=== PATIENT | male | born 1980 | race Caucasian/White ===

== ENCOUNTER 2023-04-01 13:38 | Emergency (ER) | payer BC ==
[2023-04-01 13:57] VITALS: TEMP 98.2
--- NOTE | 2023-04-01 13:58 | ED ---
General Adult HPI - General Chief complaint: Syncope Stated complaint: Syncope Time Seen by Provider: 04/01/23 13:41 Source: patient, RN notes reviewed Mode of arrival: ambulatory Limitations: no limitations - History of Present Illness Initial comments: Patient is a pleasant 42-year-old male presents emergency department with syncopal episode. Patient was sitting on a couch pain in his phone. Patient got up and stretched when he believes he passed out. Patient believes this lasted less than 1 minute. Patient states this was witnessed by his children who are under 11 years old. Patient strike his head. No significant headache. No chest pain or dyspnea. No back pain or abdominal pain. No history of similar symptoms previously - Related Data Allergies Allergy/AdvReac Type Severity Reaction Status Date / Time Penicillins Allergy Unknown Verified 04/01/23 13:42 Childhood Review of Systems ROS Statement: Those systems with pertinent positive or pertinent negative responses have been documented in the HPI. ROS Other: All systems not noted in ROS Statement are negative. Constitutional: Denies: fever Eyes: Denies: eye pain ENT: Denies: ear pain Respiratory: Denies: cough, dyspnea Cardiovascular: Denies: chest pain Endocrine: Denies: fatigue Gastrointestinal: Denies: abdominal pain Genitourinary: Denies: dysuria Musculoskeletal: Denies: back pain Skin: Denies: rash Neurological: Denies: headache, weakness, confusion Past Medical History Past Medical History: No Reported History History of Any Multi-Drug Resistant Organisms: None Reported Past Surgical History: No Surgical Hx Reported Past Psychological History: No Psychological Hx Reported Smoking Status: Never smoker Past Alcohol Use History: None Reported Past Drug Use History: None Reported General Exam Limitations: no limitations General appearance: alert, in no apparent distress Head exam: Present: other (Minimal ecchymosis right forehead) Eye exam: Present: normal appearance, PERRL, EOMI. Absent: nystagmus ENT exam: Present: normal oropharynx Neck exam: Present: normal inspection. Absent: tenderness Respiratory exam: Present: normal lung sounds bilaterally Cardiovascular Exam: Present: regular rate, normal rhythm Expanded Peripheral pulses: 2+: Radial (R), Radial (L), Dorsalis Pedis (R), Dorsalis Pedis (L) GI/Abdominal exam: Present: soft, normal bowel sounds. Absent: distended, tenderness, guarding, rebound, rigid, pulsatile mass Extremities exam: Present: normal inspection. Absent: pedal edema, calf tenderness Back exam: Present: normal inspection. Absent: tenderness Neurological exam: Present: alert, oriented X3, CN II-XII intact. Absent: motor sensory deficit Expanded Neurological exam: Present: protecting the airway Speech: Present: fluid speech Cranial nerves: EOM's Intact: Normal Motor strength exam: RUE: 5, LUE: 5, RLE: 5, LLE: 5 Eye Response: (4) open spontaneously Motor Response: (6) obeys commands Verbal Response: (5) oriented Psychiatric exam: Present: normal affect, normal mood Skin exam: Present: normal color Course Vital Signs 04/01/23 13:40 Temperature 98.2 F Pulse Rate 87 Respiratory 16 Rate Blood Pressure 166/106 O2 Sat by Pulse 100 Oximetry EKG Findings - EKG Results: EKG: interpreted by JAKED, sinus rhythm, normal axis, normal QRS, normal ST/T Medical Decision Making - Medical Decision Making Was pt. sent in by a medical professional or institution (, PA, NURSING TECH, urgent care, hospital, or fci...) When possible be specific @ -No Did you speak to anyone other than the patient for history (EMS, parent, family, police, friend...)? What history was obtained from this source @ - is present and helps provide history including the incident as witnessed by children Did you review nursing and triage notes (agree or disagree)? Why? @ -I reviewed and agree with nursing and triage notes Were old charts reviewed (outside hosp., previous admission, EMS record, old EKG, old radiological studies, urgent care reports/EKG's, fci records)? Report findings @ -No old charts were reviewed Differential Diagnosis (chest pain, altered mental status, abdominal pain women, abdominal pain men, vaginal bleeding, weakness, fever, dyspnea, syncope, headache, dizziness, GI bleed, back pain, seizure, CVA, palpatations, mental health, musculoskeletal)? @ -Differential Syncope: Valvular disease, hypertrophic cardiomyopathy, pulmonary embolism, tamponade, tachycardia, bradycardia, CA, hypovolemia, hemorrhage, dissection, anemia, intracranial hemorrhage, seizure, hypoglycemia, carbon monoxide poisoning, this is not meant to be an all-inclusive list. EKG interpreted by me (3pts min.). @ -As above X-rays interpreted by me (1pt min.). @ -Chest x-ray shows no acute process CT interpreted by me (1pt min.). @ -CT brain without obvious hemorrhage or mass U/S interpreted by me (1pt. min.). @ -None done What testing was considered but not performed or refused? (CT, X-rays, U/S, labs)? Why? @ -None What meds were considered but not given or refused? Why? @ -None Did you discuss the management of the patient with other professionals (professionals i.e. DrAllison, PA, NURSING TECH, lab, RT, psych nurse, social welfare research worker, data services developer, teacher, air defense control officer, case work aide)? Give summary @ -No Was smoking cessation discussed for >3mins.? @ -No Was critical care preformed (if so, how long)? @ -No Were there social determinants of health that impacted care today? How? (Homelessness, low income, unemployed, alcoholism, drug addiction, transportation, low edu. Level, literacy, decrease access to med. care, long-term, rehab)? @ -No Was there de-escalation of care discussed even if they declined (Discuss DNR or withdrawal of care, Hospice)? DNR status @ -No What co-morbidities impacted this encounter? (DM, HTN, Smoking, COPD, CAD, Cancer, CVA, ARF, Chemo, Hep., AIDS, mental health diagnosis, sleep apnea, morbid obesity)? @ -None Was patient admitted / discharged? Hospital course, mention meds given and route, prescriptions, significant lab abnormalities, going to OR and other pertinent info. @ -Patient age 42 presents with syncopal episode. Patient symptom-free at this time. Patient and family updated on results and need for follow-up. Patient will be discharged with PCP follow-up for further evaluation. Undiagnosed new problem with uncertain prognosis? @ -No Drug Therapy requiring intensive monitoring for toxicity (Heparin, Nitro, Insulin, Cardizem)? @ -No Were any procedures done? @ -No Diagnosis/symptom? @ -Syncope Acute, or Chronic, or Acute on Chronic? @ -Acute Uncomplicated (without systemic symptoms) or Complicated (systemic symptoms)? @ -default Side effects of treatment? @ -No Exacerbation, Progression, or Severe Exacerbation? @ -No Poses a threat to life or bodily function? How? (Chest pain, USA, CA, pneumonia, PE, COPD, DKA, ARF, appy, cholecystitis, CVA, Diverticulitis, Homicidal, Suicidal, threat to staff... and all critical care pts) @ -No - Lab Data Result diagrams: 04/01/23 14:10 04/01/23 14:10 Lab Results 04/01/23 04/01/23 04/01/23 Range/Units 14:10 14:10 14:10 WBC 7.0 (3.8-10.6) k/uL RBC 5.32 (4.30-5.90) m/uL Hgb 16.4 (13.0-17.5) gm/dL Hct 47.6 (39.0-53.0) % MCV 89.5 (80.0-100.0) fL MCH 30.8 (25.0-35.0) pg MCHC 34.4 (31.0-37.0) g/dL RDW 12.9 (11.5-15.5) % Plt Count 246 (150-450) k/uL MPV 7.5 Neutrophils % 66 % Lymphocytes % 24 % Monocytes % 5 % Eosinophils % 3 % Basophils % 1 % Neutrophils # 4.6 (1.3-7.7) k/uL Lymphocytes # 1.7 (1.0-4.8) k/uL Monocytes # 0.3 (0-1.0) k/uL Eosinophils # 0.2 (0-0.7) k/uL Basophils # 0.0 (0-0.2) k/uL PT 9.9 L (10.0-12.5) sec INR 0.9 (<1.2) APTT 23.8 (22.0-30.0) sec D-Dimer 0.55 (<0.60) mg/L FEU Sodium 141 (137-145) mmol/L Potassium 4.4 (3.5-5.1) mmol/L Chloride 104 (98-107) mmol/L Carbon Dioxide 29 (22-30) mmol/L Anion Gap 8 mmol/L BUN 16 (9-20) mg/dL Creatinine 1.25 (0.66-1.25) mg/dL Est GFR (CKD-EPI)AfAm 83 (>60 ml/min/1.73 sqM) Est GFR (CKD-EPI)NonAf 72 (>60 ml/min/1.73 sqM) Glucose 117 H (74-99) mg/dL Calcium 9.9 (8.4-10.2) mg/dL Total Bilirubin 0.6 (0.2-1.3) mg/dL AST 37 (17-59) U/L ALT 49 (4-49) U/L Alkaline Phosphatase 54 (38-126) U/L Troponin I (0.000-0.034) ng/mL Total Protein 8.1 (6.3-8.2) g/dL Albumin 4.7 (3.5-5.0) g/dL 04/01/23 Range/Units 14:10 WBC (3.8-10.6) k/uL RBC (4.30-5.90) m/uL Hgb (13.0-17.5) gm/dL Hct (39.0-53.0) % MCV (80.0-100.0) fL MCH (25.0-35.0) pg MCHC (31.0-37.0) g/dL RDW (11.5-15.5) % Plt Count (150-450) k/uL MPV Neutrophils % % Lymphocytes % % Monocytes % % Eosinophils % % Basophils % % Neutrophils # (1.3-7.7) k/uL Lymphocytes # (1.0-4.8) k/uL Monocytes # (0-1.0) k/uL Eosinophils # (0-0.7) k/uL Basophils # (0-0.2) k/uL PT (10.0-12.5) sec INR (<1.2) APTT (22.0-30.0) sec D-Dimer (<0.60) mg/L FEU Sodium (137-145) mmol/L Potassium (3.5-5.1) mmol/L Chloride (98-107) mmol/L Carbon Dioxide (22-30) mmol/L Anion Gap mmol/L BUN (9-20) mg/dL Creatinine (0.66-1.25) mg/dL Est GFR (CKD-EPI)AfAm (>60 ml/min/1.73 sqM) Est GFR (CKD-EPI)NonAf (>60 ml/min/1.73 sqM) Glucose (74-99) mg/dL Calcium (8.4-10.2) mg/dL Total Bilirubin (0.2-1.3) mg/dL AST (17-59) U/L ALT (4-49) U/L Alkaline Phosphatase (38-126) U/L Troponin I <0.012 (0.000-0.034) ng/mL Total Protein (6.3-8.2) g/dL Albumin (3.5-5.0) g/dL Disposition Clinical Impression: Syncope Disposition: HOME SELF-CARE Condition: Stable Instructions (If sedation given, give patient instructions): Syncope (ED) Additional Instructions: Please do follow-up with your primary care physician in the next day or 2 for recheck. Consider further testing such as echo or Holter monitor. Return for pain or breathing problems, weakness, passing out, worsening symptoms or other concerns. Is patient prescribed a controlled substance at d/c from ED?: No Referrals: Ammon Barry MD [Primary Care Provider] - 1-2 days Time of Disposition: 15:37
[2023-04-01 14:18] LABS: Basophils % (A) 1 %; Eosinophils # (A) 0.2 k/uL (0-0.7); Eosinophils % (A) 3 %; HCT 47.6 % (39.0-53.0); HGB 16.4 gm/dL (13.0-17.5); Lymphocytes # (A) 1.7 k/uL (1.0-4.8); Lymphocytes % (A) 24 %; MCH 30.8 pg (25.0-35.0); MCHC 34.4 g/dL (31.0-37.0); MCV 89.5 fL (80.0-100.0); Mean Platelet Volume 7.5; Monocytes # (A) 0.3 k/uL (0-1.0); Monocytes % (A) 5 %; Neutrophils # (A) 4.6 k/uL (1.3-7.7); Neutrophils % (A) 66 %; Platelet Count 246 k/uL (150-450); RBC 5.32 m/uL (4.30-5.90); RDW 12.9 % (11.5-15.5)
--- NOTE | 2023-04-01 14:25 | XR ---
EXAMINATION TYPE: XR chest 2V DATE OF EXAM: 04/01/2023 COMPARISON: NONE HISTORY: Chest pain TECHNIQUE: Frontal and lateral views of the chest are obtained. FINDINGS: There is no focal air space opacity. No evidence for pneumothorax. No pleural effusion. The cardiac silhouette size is within normal limits. The osseous structures are grossly intact. IMPRESSION: 1. No acute cardiopulmonary process.
[2023-04-01 14:32] LABS: ALT 49 U/L (4-49); AST 37 U/L (17-59); African American GFR (CKD) 83 (>60 ml/min/1.73 sqM); Albumin 4.7 g/dL (3.5-5.0); Alkaline Phosphatase 54 U/L (38-126); Anion Gap 8 mmol/L; Blood Urea Nitrogen 16 mg/dL (9-20); Calcium 9.9 mg/dL (8.4-10.2); Carbon Dioxide 29 mmol/L (22-30); Chloride 104 mmol/L (98-107); Glucose 117 mg/dL (74-99); Non-African American GFR(CKD) 72 (>60 ml/min/1.73 sqM); Potassium 4.4 mmol/L (3.5-5.1); Sodium 141 mmol/L (137-145); Total Bilirubin 0.6 mg/dL (0.2-1.3); Total Protein 8.1 g/dL (6.3-8.2)
[2023-04-01 14:34] LABS: INR 0.9 (<1.2); Partial Thromboplastin Time 23.8 sec (22.0-30.0); Prothrombin Time 9.9 sec (10.0-12.5)
--- NOTE | 2023-04-01 15:21 | CT ---
EXAMINATION TYPE: CT brain wo con DATE OF EXAM: 04/01/2023 COMPARISON: none HISTORY: Syncope, hit head. CT DLP: 1168.[address] of the brain was performed. The ventricles, basal cisterns and sulci overlying the cerebral convexities demonstrate a normal appe arance. There is no evidence for intracranial hemorrhage or sulcal effacement. No mass effects are seen. Osseous calvarium is intact. If symptoms persist consider MRI as clinically warranted. IMPRESSION: 1. No acute intracranial process is seen at this time.
[2023-04-01 16:15] VITALS: BP 137/93; PULSE 79; RESP 20
== END 2023-04-01 15:51 | disposition home or self-care (01) ==
LOC: EC 13:38
DX: R55 Syncope and collapse (principal); Z88.0 Allergy status to penicillin
CPT/HCPCS: 36415; 70450; 71046; 80053; 84484; 85025; 85379; 85610; 85730; 93005; 99284

== ENCOUNTER → 2023-06-17 | Outpatient (CLI) | payer BC ==
--- NOTE | 2023-06-17 10:43 | CA ---
Transthoracic Echo Report Name: Parminder Chambers Age: 42 Gender: M : 1980 Exam Date: 06/17/2023 08:41 Exam Location: [facility] [facility] Ht (in): 60 Wt (lb): 240 Ordering Physician: Devan Lebron DO Attending/Referring Phys: Devan Lebron DO Visual Coordinator EmilyShashank RDCS Procedure CPT: Indications: R55 SYNCOPE I49.9 Cardiac Hx: Technical Quality: Fair Contrast 1: Total Dose (mL): Contrast 2: Total Dose (mL): MEASUREMENTS (Male / Female) Normal Values 2D ECHO LV Diastolic Diameter PLAX 5.0 cm 4.2 - 5.9 / 3.9 - 5.3 cm LV Systolic Diameter PLAX 3.3 cm IVS Diastolic Thickness 1.3 cm 0.6 - 1.0 / 0.6 - 0.9 cm LVPW Diastolic Thickness 0.7 cm 0.6 - 1.0 / 0.6 - 0.9 cm LV Relative Wall Thickness 0.4 Aortic Root Diameter 3.5 cm LA Systolic Diameter LX 4.2 cm 3.0 - 4.0 / 2.7 - 3.8 cm DOPPLER AV Peak Velocity 62.0 cm/s AV Peak Gradient 1.5 mmHg AV Mean Velocity 82.6 cm/s AV Mean Gradient 3.1 mmHg AV Velocity Time Integral 27.5 cm LVOT Peak Velocity 92.0 cm/s LVOT Peak Gradient 3.4 mmHg Mitral E Point Velocity 63.7 cm/s Mitral A Point Velocity 82.2 cm/s Mitral E to A Ratio 0.8 MV Deceleration Time 91.1 ms MV E' Velocity 13.4 cm/s Mitral E to MV E' Ratio 4.8 PV Peak Velocity 75.2 cm/s PV Peak Gradient 2.3 mmHg FINDINGS Left Ventricle Mildly increased septal wall thickness. Left ventricular ejection fraction is estimated at 50-55 %.normal left ventricular wall motion. Left ventricular cavity size normal. Right Ventricle Normal right ventricular size. Right Atrium Normal right atrial size. Left Atrium Mildly increased left atrial diameter. Mitral Valve No mitral stenosis, or prolapse.structurally normal mitral valve. Trace to mild mitral regurgitation. Aortic Valve No aortic valve stenosis or regurgitation. Tricuspid Valve No tricuspid stenosis, or prolapse.structurally normal tricuspid valve. Trace to mild tricuspid regurgitation. Pulmonic Valve Pulmonic valve not well visualized. Pericardium No thickening/calcification of the pericardium. Aorta Normal size aortic root and proximal ascending aorta. CONCLUSIONS 1. Normal left ventricle size and borderline systolic function 2. Trace to mild mitral and tricuspid regurgitation Previewed by: Dr. Ramya Quintero MD (Electronically Signed) Final Date: 17 June 2023 10:42
== END | disposition home or self-care (01) ==
LOC: RADECHMAIN 08:26
PROVIDERS: ATTEND Psychiatry & Neurology Neurology
DX: I34.0 Nonrheumatic mitral (valve) insufficiency (principal); I36.1 Nonrheumatic tricuspid (valve) insufficiency; I49.9 Cardiac arrhythmia, unspecified; R55 Syncope and collapse; R00.2 Palpitations
CPT/HCPCS: 93306

== ENCOUNTER → 2023-06-18 | Outpatient (CLI) | payer BC ==
--- NOTE | 2023-06-28 17:27 | P.CEMON ---
7 Day Event monitor note: Patient wore an event monitor for 7 days from 06/18/2023 through 06/25/2023. Findings: Patient's baseline heart rate was normal sinus rhythm. There were no signficant atrial fibrillation, atrial flutter, or ventricular tachycardia episodes. There were no significant pauses greater than 2 seconds. There were 5 patient activated events which corresponded with normal sinus rhythm. There was occasional asymptomatic sinus bradycardia with heart rates in the 40s mainly during sleeping hours. Lowest heart rate 36 bpm at 2:49 AM Conclusions: 7 day event monitor showing normal sinus rhythm and sinus bradycardia. Patient activated events corresponded with sinus rhythm. Sinus bradycardia with heart rates in the 40s and lowest 36 bpm during sleeping hours
--- NOTE | 2023-07-01 09:57 | EM ---
7 Day Event monitor note: Patient wore an event monitor for 7 days from 06/18/2023 through 06/25/2023. Findings: Patient's baseline heart rate was normal sinus rhythm. There were no significant atrial fibrillation, atrial flutter, or ventricular tachycardia episodes. There were no significant pauses greater than 2 seconds. There were 5 patient activated events which corresponded with normal sinus rhythm. There was occasional asymptomatic sinus bradycardia with heart rates in the 40s mainly during sleeping hours. Lowest heart rate 36 bpm at 2:49 AM Conclusions: 7 day event monitor showing normal sinus rhythm and sinus bradycardia. Patient activated events corresponded with sinus rhythm. Sinus bradycardia with heart rates in the 40s and lowest 36 bpm during sleeping hours. [facility]
== END | disposition home or self-care (01) ==
LOC: RADECHMAIN 07:27
PROVIDERS: ATTEND Psychiatry & Neurology Neurology
DX: I49.9 Cardiac arrhythmia, unspecified (principal); R55 Syncope and collapse
CPT/HCPCS: 93270

== ENCOUNTER → 2023-11-05 | Outpatient (CLI) | payer BC ==
[2023-11-05 15:39] VITALS: BP 122/82; PULSE 50; RESP 18; TEMP 98.1
--- NOTE | 2023-11-05 16:28 | P.SLEEP ---
History of Present Illness H&P Date: 11/05/23 This is a pleasant 43-year-old male patient is coming in for sleep apnea evaluation. The patient was referred to me by cardiology. The patient had an episode of syncope and he has completed the neurowork-up and a cardiac workup and there was no significant abnormalities identified. Upon further evaluation, the patient was suspected of obstructive sleep apnea and the patient was referred to me. The patient is currently working at an [employer], and the patient is undergoing midnight shifts. He works between midnight and 8 AM in the morning. He gets home at around 9 AM. He goes to bed at around 10 AM in the morning and he gets out of bed at 4 PM. On the weekends, he does not work and he sleeps till 8 AM. He is averaging around 6 to 8 hours of sleep depending on the weekday. His is accompanied with him today in the office. She confirms that he snores and stops breathing during sleep. The patient feels fatigued on the job. He does not fall asleep. This has not affected his functionality. He drinks 2 to 3 cups of coffee on the job. His current Reform score is at 13. He is gradually gaining weight over the years and the patient has gained approximately 20 to 30 pounds over the past 5 years. No sleep paralysis. No hallucinations. No cataplexy. He sleeps on his side. His sleep is not fragmented. No anxiety or panic attacks. No palpitations. No heartburn. No restlessness in lower extremities. No sleepwalking. No sleep talking. No parasomnias. No history of any motor vehicle accidents because of feeling drowsy or sleepy. No personal or family history of obstructive sleep apnea. Review of Systems Constitutional: Reports fatigue, Reports weight gain Eyes: denies as per HPI, denies blurred vision, denies bulging eye, denies decreased vision, denies diplopia, denies discharge, denies dry eye, denies irritation, denies itching, denies pain, denies photophobia, denies loss of peripheral vision, denies loss of vision, denies tunnel vision/blind spots Ears: deny: decreased hearing, ear discharge, earache, tinnitus Ears, nose, mouth and throat: Reports as per HPI Breasts: absent: as per HPI, gynecomastia Cardiovascular: Reports as per HPI Respiratory: Reports snoring Gastrointestinal: Reports as per HPI Genitourinary: Reports as per HPI Musculoskeletal: Reports as per HPI Musculoskeletal: absent: ankle pain, ankle stiffness, ankle swelling, as per HPI, elbow pain, elbow stiffness, elbow swelling, foot pain, foot stiffness, foot swelling, hand pain, hand stiffness, hand swelling, hip pain, hip stiffness, hip swelling, knee pain, knee stiffness, knee swelling, shoulder pain, shoulder stiffness, shoulder swelling, wrist pain, wrist stiffness, wrist swelling Integumentary: Reports as per HPI Neurological: Reports as per HPI Psychiatric: Reports as per HPI Endocrine: Reports as per HPI, Reports fatigue Hematologic/Lymphatic: Reports as per HPI Allergic/Immunologic: Reports as per HPI Past Medical History Past Medical History: Syncope Additional Past Medical History / Comment(s): SYNCOPAL EPISODE IN MARCH 2023, SINUS HEADACHES, SNORING History of Any Multi-Drug Resistant Organisms: None Reported Past Surgical History: No Surgical Hx Reported Past Psychological History: No Psychological Hx Reported Additional Psychological History / Comment(s): gET ANXIOUS AT TIMES BUT NO DIAGNOSIS Smoking Status: Former smoker Past Alcohol Use History: Occasional Past Drug Use History: None Reported - Past Family History Father Family Medical History: CVA/TIA, Diabetes Mellitus, Hypertension, Myocardial Infarction (OR) Additional Family Medical History / Comment(s): MULTIPLE CARDIAC STENTS (MOTHER - CANCER AND BROTHER - MENTAL ILLNESS) Medications and Allergies Allergies Allergy/AdvReac Type Severity Reaction Status Date / Time Penicillins Allergy Unknown Verified 04/01/23 13:42 Childhood Physical Exam Vitals: Vital Signs Temp Pulse Resp BP Pulse Ox 11/05/23 15:38 98.1 F 50 L 18 122/82 98 Intake and Output 11/05/23 11/05/23 11/05/23 06:59 14:59 22:59 Other: Weight 109.429 kg The patient appeared well nourished and normally developed. Vital signs as documented. Head exam is unremarkable. No scleral icterus or corneal arcus noted. Neck is without jugular venous distension, thyromegaly, or carotid bruits. Carotid upstrokes are brisk bilaterally. Lungs are clear to auscultation and percussion. Cardiac exam reveals the PMI to be normally sized and situated. Rhythm is regular. First and second heart sounds normal. No murmurs, rubs or gallops. Abdominal exam reveals normal bowel sounds, no masses, no organomegaly and no aortic enlargement. Extremities are nonedematous and both femoral and pedal pulses are normal. Examination of the skin revealed no evidence of significant rashes, suspicious appearing nevi or other concerning lesions. Neurologically, the patient is awake and alert and the patient does not have any focal neurological deficit. Cranial nerves are essentially intact. Assessment and Plan Plan: Loud snoring, with concerns of an underlying sleep breathing disorder. The patient has been having excessive fatigue and sleepiness as the patient has been switched from afternoon shift to a midnight shift work. 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 No other major comorbidities Plan Will implement good sleep hygiene principles. Extend sleep hours on average of 7 hours of sleep in the morning. The patient will be encouraged to lose weight. The patient will undergo a polysomnography and this will be a morning study to evaluate him for sleep apnea/sleep breathing disorder. Based on that, I will make further decisions if treatment is needed. Sleep Note - Sleep Data ESS Total: 13 - Sleep Note Sleep Note: Temperature: 98.1 F Pulse Rate: 50 Respiratory Rate: 18 Blood Pressure: 122/82 SpO2: 98 Height: 5 ft 10 in Weight: 109.429 kg BMI: Neck Circumference: 16.7
== END ==
LOC: 3 N SLEEP 14:42
PROVIDERS: ATTEND Internal Medicine Critical Care Medicine
DX: R06.83 Snoring (principal); R53.82 Chronic fatigue, unspecified; E66.9 Obesity, unspecified; R55 Syncope and collapse; Z87.891 Personal history of nicotine dependence; Z88.0 Allergy status to penicillin; Z68.34 Body mass index [BMI] 34.0-34.9, adult
CPT/HCPCS: 99211

== ENCOUNTER 2023-12-10 08:37 | Outpatient (CLI) | payer BC ==
--- NOTE | 2023-12-15 14:53 | P.PCN ---
Date of Procedure: 01/10/24 Operative Findings: This is a pleasant 43-year-old male patient is coming in for sleep apnea evaluation. The patient was referred to me by cardiology. The patient had an episode of syncope and he has completed the neurowork-up and a cardiac workup and there was no significant abnormalities identified. Upon further evaluation, the patient was suspected of obstructive sleep apnea and the patient was referred to me. The patient is currently working at an [employer], and the patient is undergoing midnight shifts. He works between midnight and 8 AM in the morning. He gets home at around 9 AM. He goes to bed at around 10 AM in the morning and he gets out of bed at 4 PM. On the weekends, he does not work and he sleeps till 8 AM. He is averaging around 6 to 8 hours of sleep depending on the weekday. His is accompanied with him today in the office. She confirms that he snores and stops breathing during sleep. The patient feels fatigued on the job. He does not fall asleep. This has not affected his functionality. He drinks 2 to 3 cups of coffee on the job. His current Jewett score is at 13. He is gradually gaining weight over the years and the patient has gained approximately 20 to 30 pounds over the past 5 years. No sleep paralysis. No hallucinations. No cataplexy. He sleeps on his side. His sleep is not fragmented. No anxiety or panic attacks. No palpitations. No heartburn. No restlessness in lower extremities. No sleepwalking. No sleep talking. No parasomnias. No history of any motor vehicle accidents because of feeling drowsy or sleepy. No personal or family history of obstructive sleep apnea. Loud snoring, with concerns of an underlying sleep breathing disorder. The patient has been having excessive fatigue and sleepiness as the patient has been switched from afternoon shift to a midnight shift work. Based on that, a screening polysomnography was ordered and this was a morning study Pertinent physical findings The weight is 241 pounds with a body mass index of 34.5 Technical description The patient was studied using a standard complex polysomnography protocol that included recording of the 2 EKG, Central, occipital and frontal EEG, right and left outer canthus EOG, submental EMG, right and left anterior tibialis EMG, respiratory airflow by thermocouple and or pressure/flow transducer, respiratory efforts by abdominal and thoracic PVDF belts, oxygen saturation by cable oximetry. Position by observation synchronized the PSG. Equipment used: [facility]. Sleep architecture The total recording duration was 416.5 minutes. The total sleep time was 3 and 57.0 minutes. The wake after sleep onset time was 22.0 minutes. The overall sleep efficiency was 85.7%. The latency to sleep was 6.5 minutes and the latest REM sleep was 110.5 minutes. The sleep architecture was characterized by 10.2% stage I, 71.4% stage II, 6.3% stage III, and 12.7% REM sleep. The total arousal index was 16. Respiratory analysis The patient encountered a total of 19 obstructive events of which 0 were obstructive apneas, 0 were mixed apneas and 90 were obstructive hypopneas and the resulting AHI was 2.5. Oxygenation analysis The baseline pulse ox while the patient was awake was 95%. Lowest oxygen saturation was 87% during REM sleep. The patient spent approximately 12 minutes of sleep time below pulse ox of 89%. Sleep continuity summary The patient had a total of 95 arousals with a index of 16. The respiratory a rousal index was 1.0 Periodic movement events There was a total of 30 periodic limb movement activity with arousals with an index of 5.0 Cardiac rate The average heart rate was 45 with a minimum heart rate of 41 and the maximum heart rate of 52 Assessment Primary snoring without evidence of any significant sleep breathing disorder or nocturnal oxygen desaturation. AHI was calculated to be at 2.5 and the patient encountered some few obstructive hypopneas. No evidence of any obstructive apneas. No evidence of any central apneas. Sinus bradycardia and the patient encountered the low heart rates throughout most of the testing, rhythm being sinus. 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 No other major comorbidities Plan Will implement good sleep hygiene principles. Extend sleep hours on average of 7 hours of sleep in the morning. The patient will be encouraged to lose weight. The sleep study is negative for any form of sleep breathing disorder, and the patient will be referred back to cardiology.
== END 2023-12-10 17:15 | disposition home or self-care (01) ==
LOC: 3 N SLEEP 08:37
PROVIDERS: ATTEND Internal Medicine Critical Care Medicine
DX: G47.33 Obstructive sleep apnea (adult) (pediatric) (principal); E66.9 Obesity, unspecified; G47.36 Sleep related hypoventilation in conditions classified elsewhere; R00.1 Bradycardia, unspecified; R53.82 Chronic fatigue, unspecified; R55 Syncope and collapse; Z68.34 Body mass index [BMI] 34.0-34.9, adult; Z88.0 Allergy status to penicillin
CPT/HCPCS: 95810